=== PATIENT | male | born 1995 | race Caucasian/White ===

== ENCOUNTER 2018-11-05 19:17 | Emergency (ER) | payer OTHER ==
[~2018-11-05] VITALS: Ht 180.3 cm; Wt 109.1 kg
[2018-11-05 19:24] VITALS: BP 141/85; TEMP 97.6
[2018-11-05] MEDS ORDERED: ZYRTEC 10MG10 MG PO (20:28)
[2018-11-05] MEDS ORDERED: AKTOB 5 ML5 ML OP (20:42)
[2018-11-05 21:20] VITALS: PULSE 68
== END 2018-11-05 21:26 | disposition home or self-care (01) ==
LOC: COL.ER 19:17
DX: S05.01XA Injury of conjunctiva and corneal abrasion without foreign body, right eye, initial encounter (principal); W22.8XXA Striking against or struck by other objects, initial encounter

== ENCOUNTER 2018-12-13 07:58 | Emergency (ER) | payer SELFPAY ==
[~2018-12-13] VITALS: Ht 180.3 cm; Wt 104.5 kg
[~2018-12-13 07:58] MED LIST: AKTOB 5 ML5 ML OP; ZYRTEC 10MG10 MG PO
[2018-12-13 08:02] VITALS: BP 131/78; TEMP 98
[2018-12-13] MEDS ORDERED: CILOXAN 5 ML5 ML OS (08:35)
[2018-12-13 08:56] VITALS: PULSE 80
== END 2018-12-13 08:56 | disposition home or self-care (01) ==
LOC: COL.ER 07:58
DX: H10.9 Unspecified conjunctivitis (principal); F17.210 Nicotine dependence, cigarettes, uncomplicated; F12.90 Cannabis use, unspecified, uncomplicated

== ENCOUNTER → 2020-07-24 | Outpatient (CLI) | payer OTHER ==
[~2020-07-24] MED LIST changes: +CILOXAN 5 ML5 ML OS
== END ==
LOC: ZCOL.LAB 13:43
DX: Z20.828 Contact with and (suspected) exposure to other viral communicable diseases (principal)

== ENCOUNTER 2021-01-11 06:50 | Emergency (ER) | payer OTHER ==
[~2021-01-11] VITALS: Ht 180.3 cm; Wt 113.6 kg
[2021-01-11 06:57] VITALS: BP 124/94; TEMP 98.3
[2021-01-11] MEDS ORDERED: AMOXICILLIN 8751 TAB PO (07:10)
[2021-01-11 08:00] VITALS: PULSE 98
== END 2021-01-11 08:00 | disposition home or self-care (01) ==
LOC: COL.ER 06:50
DX: S61.431A Puncture wound without foreign body of right hand, initial encounter (principal); F17.210 Nicotine dependence, cigarettes, uncomplicated; Z88.1 Allergy status to other antibiotic agents; W54.0XXA Bitten by dog, initial encounter